=== PATIENT | male | born 1980 | race Caucasian/White ===

== ENCOUNTER 2024-09-02 09:48 | Emergency (ER) | payer BC, OTHER ==
[~2024-09-02] VITALS: Ht 180.3 cm; Wt 97.0 kg
[~2024-09-02 09:48] MED LIST: ONDA-243 PO
[2024-09-02 10:06] VITALS: TEMP 97.8
[2024-09-02 10:32] LABS: BILIRUBIN,URINE SMALL (Neg); CLARITY,URINE CLEAR (Clear); COLOR,URINE YELLOW (Yellow); GLUCOSE, URINE NEGATIVE (Neg); KETONES,URINE >=80 mg/dl (Neg); LEUKOCYTE ESTERASE ,URINE NEGATIVE (Neg); NITRITES, URINE NEGATIVE (Neg); OCCULT BLOOD,URINE TRACE-LYSED (Neg); PROTEIN,URINE 100 mg/dl (Neg)
[2024-09-02 10:33] LABS: BASOPHILS # (AUTO) 0.1 X10'3 (0-0.2); BASOPHILS % (AUTO) 1.2 % (0-1); EOSINOPHILS # (AUTO) 0.1 X10'3 (0-0.9); EOSINOPHILS % (AUTO) 0.9 % (0-6); LYMPHOCYTES # (AUTO) 1.2 X10'3 (1.1-4.8); LYMPHOCYTES % (AUTO) 21.1 % (21-51); MEAN CORPUSCULAR HEMOGLOBIN 33.5 PG (27.0-31.0); MEAN CORPUSCULAR HGB CONC 36.2 g/dL (33.0-36.5); MEAN CORPUSCULAR VOLUME 92.6 FL (78-98); MEAN PLATELET VOLUME 8.2 FL (7.4-10.4); MONOCYTES # (AUTO) 0.8 X10'3 (0-0.9); MONOCYTES % (AUTO) 12.7 % (2-12); NEUTROPHILS # (AUTO) 3.8 X10'3 (1.8-7.7); NEUTROPHILS % (AUTO) 64.1 % (42-75); PLATELET COUNT 279 X10'3 (140-440); RED CELL DISTRIBUTION WIDTH 12.4 % (11.5-14.5); WHITE BLOOD COUNT 5.9 X10'3 (4.5-11.0)
[2024-09-02 10:46] LABS: UA COLLECTION TYPE NON-SPECIFIED
[2024-09-02 10:48] LABS: RBC,URINE 0-2 /HPF (0-2); WBC,URINE 0-4 /HPF (0-4)
[2024-09-02 10:49] LABS: BACTERIA,URINE FEW /HPF (Neg); HYALINE CASTS 0-3 /LPF (NEGATIVE); RENAL CELLS, URINE FEW /HPF; SQUAMOUS EPITHELIAL CELL,UR FEW /LPF (FEW)
[2024-09-02 10:50] LABS: ALANINE AMINOTRANSFERASE 113 U/L (12-78); ALBUMIN 4.3 G/DL (3.4-5.0); ALKALINE PHOSPHATASE 88 IU/L (46-116); ANION GAP 11 (8-16); ASPARTATE AMINO TRANSFERASE 47 U/L (10-37); BILIRUBIN,TOTAL 1.3 MG/DL (0.1-1.0); BLOOD UREA NITROGEN 11 MG/DL (7-18); BUN/CREATININE RATIO 10.9 (10.0-20.0); CALCIUM 9.3 MG/DL (8.5-10.1); CHLORIDE 99 MMOL/L (99-107); CREATININE 1.01 MG/DL (0.60-1.10); GLUCOSE 116 MG/DL (70-104); LIPASE 88 U/L (16-77); POTASSIUM 3.7 MMOL/L (3.5-5.1); SODIUM 137 MMOL/L (135-145); TOTAL CARBON DIOXIDE 27.5 MMOL/L (24-32); TOTAL PROTEIN 8.4 G/DL (6.4-8.2); eCRCL 103 ML/MIN; eGFR 81 ML/MIN
[2024-09-02 11:38] LABS: HEMOGLOBIN 18.1 g/dl (14.0-17.9)
[2024-09-02] MEDS ORDERED: iohexol 300mg/ml 100ml inj. ONE (12:43)
[2024-09-02] MEDS: normal saline 1000ml 1,000 ML IV ONE (13:06)
[2024-09-02] MEDS ORDERED: BUPR150T8 PO (14:14)
[2024-09-02] MEDS ORDERED: NALT50TA5 PO (14:14)
[2024-09-02] MEDS: ketorolac trometh 30MG/ML vial 30 MG/ML VIAL IM STA (14:49)
[2024-09-02 14:53] VITALS: BP 170/110; PULSE 64; RESP 16; O2SAT 96
== END 2024-09-02 14:54 | disposition home or self-care (01) ==
LOC: ER 09:49
DX: R10.32 Left lower quadrant pain (principal); I10 Essential (primary) hypertension; F10.20 Alcohol dependence, uncomplicated
CPT/HCPCS: 36415; 74177; 80053; 81001; 83690; 85025; 96360; 96372; 99285; J1885; J7030; Q9967